=== PATIENT | female | born 1940 | race Caucasian/White ===

== ENCOUNTER 2020-05-15 14:17 | Outpatient (CLI) | payer MEDICARE, SELFPAY ==
--- NOTE | ~2020-05-15 | MM_ITS ---
EXAMINATION: MM screening [facility] w funmilayo HISTORY: Screening TECHNIQUE: Craniocaudal and mediolateral oblique 3-D tomosynthesis images were obtained and synthetic 2-D images were generated. CAD analysis was submitted and interpreted. COMPARISON: Comparison to multiple prior studies sequentially, with oldest reviewed study dated 01/2015. BREAST PARENCHYMAL COMPOSITION: There are scattered areas of fibroglandular density. FINDINGS: There is no evidence of suspicious mass, calcification, or architectural distortion to sugg est malignancy in either breast. There has been no suspicious interval change. IMPRESSION: 1. No mammographic evidence of malignancy. 2. Recommend routine screening mammography in one year. BI-RADS Category 1: Negative Reviewed, dictated and finalized at location A.
== END 2020-05-15 14:18 | disposition home or self-care (01) ==
LOC: ANHIMG 14:23
PROVIDERS: PCP Internal Medicine; Visit Provider Obstetrics & Gynecology
DX: Z12.31 Encounter for screening mammogram for malignant neoplasm of breast (principal)
CPT/HCPCS: 77063; 77067

== ENCOUNTER 2021-06-23 11:34 | Outpatient (CLI) | payer MEDICARE, SELFPAY ==
--- NOTE | ~2021-06-23 | MM_ITS ---
EXAMINATION: MM screening [facility] w funmilayo HISTORY: Screening mammogram TECHNIQUE: Craniocaudal and mediolateral oblique 3-D tomosynthesis images were obtained and synthetic 2-D images were generated. CAD analysis was submitted and interpreted. COMPARISON: 05/15/2020, 05/13/2019 BREAST PARENCHYMAL COMPOSITION: The breasts are heterogeneously dense, which may obscure small masses . FINDINGS: Scattered benign-appearing calcifications are present. There is no evidence of suspicious m ass, calcification, or architectural distortion to suggest malignancy in either breast. There has bee n no suspicious interval change. IMPRESSION: 1. No mammographic evidence of malignancy. 2. Recommend routine screening mammography in one year. BI-RADS Category 2: Benign finding(s). Reviewed, dictated and finalized at location A. 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
== END 2021-06-23 11:35 | disposition home or self-care (01) ==
LOC: ANHIMG 11:36
PROVIDERS: PCP Internal Medicine; Visit Provider Obstetrics & Gynecology
DX: Z12.31 Encounter for screening mammogram for malignant neoplasm of breast (principal)
CPT/HCPCS: 77063; 77067

== ENCOUNTER 2022-02-19 14:22 | Emergency (ER) | payer MEDICARE, SELFPAY ==
[2022-02-19] VITALS (19 sets, daily range): BP systolic 149–188; BP diastolic 69–96; PULSE 102–122; RESP 14–25; TEMP 36.7–37.8; O2SAT 90–98
--- NOTE | 2022-02-19 15:31 | ED.GENADULT ---
HPI - General Adult General Chief complaint: Fever Stated complaint: ELEVATED BP MULT C/O Time Seen by Provider: 02/19/22 15:11 History of Present Illness HPI narrative: 81-year-old female presented to the emergency department for evaluation of hypertension that occurred this morning. Patient states that she normally takes 10 mg of lisinopril. Patient was having elevated blood pressures yesterday and called her primary care physician and got the physician on-call and he advised that she increase her lisinopril to 20 mg. Patient states that she did have some emotional upset after having a disagreement with her . Patient states that her blood pressure at home was more elevated she felt that her face was flushed and her eyes felt tired. Patient's blood pressure has since improved compared to at home. Patient did have a fever of 99 at home and does have a temperature of 100.1 orally here. Patient has not received a COVID-vaccine and has not yet had COVID. Related Data Allergies Allergy/AdvReac Type Severity Reaction Status Date / Time oxytetracycline Allergy Unknown Verified 09/04/14 06:56 Penicillins Allergy Unknown Verified 09/04/14 06:56 Sulfa (Sulfonamide Allergy Unknown Verified 09/04/14 06:56 Antibiotics) OXYTETRACYCLINE HCL Allergy Unknown Uncoded 09/04/14 06:56 Review of Systems Review of Systems: CONSTITUTIONAL: See HPI EYES: Denies visual changes, redness, or discharge. ENT: Denies rhinorrhea, congestion, sore throat, or otalgia. CARDIOVASCULAR: Denies chest pain, palpitations, or edema. RESPIRATORY: Denies cough or dyspnea. GASTROINTESTINAL: Denies abdominal pain, nausea, vomiting, or diarrhea. GENITOURINARY: Denies dysuria or hematuria. SKIN: Denies rash or itching. MUSCULOSKELETAL: Denies back pain, joint pain, or myalgia. NEUROLOGIC: See HPI PSYCHIATRIC: Denies anxiety or depression. Exam Narrative: APPEARANCE: Well appearing, no pain, no distress, well-nourished. HEAD: normocephalic, atraumatic. EYES: PERRLA/EOMI, conjunctivae clear. NOSE: Normal no drainage THROAT: Pharynx clear, no exudate. NECK: Supple. No adenopathy, no masses. RESPIRATORY: Airway patent, respirations nonlabored. Clear to auscultation bilaterally, no rales, rhonchi, wheezing. CARDIOVASCULAR: Regular rate and rhythm without murmurs rubs or gallops. ABDOMINAL: Soft, nontender, nondistended, normal bowel sounds MUSCULOSKELETAL: Moves all extremities. Strength/ROM intact, No edema, No calf tenderness. NEURO: Alert. Cranial nerves II through XII intact. Grossly intact SKIN: Warm, dry. Normal Color Course Course Emergency Course: Patient's vital signs are within normal limits. Patient's blood pressure did improve while in the ED. Patient did test positive for COVID. Patient was updated on the results of her testing and was encouraged of close follow-up with her primary care physician. All questions and concerns were addressed. Vital Signs Vital signs: Vital Signs Temperature 100.1 F H 02/19/22 14:25 Pulse Rate 122 H 02/19/22 14:25 Respiratory Rate 14 02/19/22 14:25 Blood Pressure 186/84 H 02/19/22 14:25 Pulse Oximetry 98 02/19/22 14:25 Oxygen Delivery Room Air 02/19/22 14:25 Temperature 98.0 F 02/19/22 16:30 Pulse Rate 110 H 02/19/22 17:01 Respiratory Rate 19 02/19/22 17:01 Blood Pressure 149/75 H 02/19/22 17:01 Pulse Oximetry 94 02/19/22 17:01 Oxygen Delivery Room Air 02/19/22 15:17 Medical Decision Making Vital Signs Vital Signs: Vital Signs Temperature 100.1 F H 02/19/22 14:25 Pulse Rate 122 H 02/19/22 14:25 Respiratory Rate 14 02/19/22 14:25 Blood Pressure 186/84 H 02/19/22 14:25 Pulse Oximetry 98 02/19/22 14:25 Oxygen Delivery Room Air 02/19/22 14:25 Temperature 98.0 F 02/19/22 16:30 Pulse Rate 110 H 02/19/22 17:01 Respiratory Rate 19 02/19/22 17:01 Blood Pressure 149/75 H 02/19/22 17:01 Pulse Oximetry 94 02/19/22 17:01 Oxygen Deliv
[2022-02-19 15:59] LABS: Appearance Urine Clear (Clear); Bilirubin Urine Negative (Negative); Blood Urine 1+ (Negative); Color Urine Yellow (Yellow); Glucose Urine UA Negative (Negative); Ketones Urine Negative (Negative); Leukocyte Esterase Ur Negative LEU/UL (Negative); Nitrate Urine Negative (Negative); Protein Urine Trace mg/dL (Negative); Urobilinogen Urine 0.2 mg/dL (<2.0)
[2022-02-19 16:02] LABS: Add Urine Microscopic? YES
[2022-02-19 16:04] LABS: Basophils Absolute Auto 0.1 K/mm3 (0.0-0.1); Basophils Percent Auto 0.6 % (0.2-1.2); Eosinophils Percent Auto 0.2 % (0-4.4); Hematocrit 42.2 % (37.0-47.0); Hemoglobin 13.7 g/dL (12.0-15.0); Immature Granulocyte Absolute 0.04 K/mm3 (0.00-0.031); Immature Granulocyte Percent A 0.5 % (0-0.5); Immature Platelet Fraction Pct 3.6 % (0.9-11.2); Lymphocytes Absolute Auto 1.08 K/mm3 (0.9-3.2); Lymphocytes Percent Auto 12.9 % (18.3-44.2); Mean Corpuscular HGB Conc 32.5 g/dl (32-36); Mean Corpuscular Hemoglobin 29.3 pg (26-34); Mean Corpuscular Volume 90.2 fl (80-100); Mean Platelet Volume 10.3 fl (7.4-10.4); Monocytes Absolute Auto 0.9 K/mm3 (0.1-0.6); Monocytes Percent Auto 10.2 % (2.6-8.5); Neutrophils Absolute Auto 6.3 K/mm3 (1.3-6.7); Neutrophils Percent Auto 75.6 % (45.5-73.1); Platelet Count Result 232 k/mm3 (150-375); Red Blood Count 4.68 M/mm3 (4.2-5.4); Red Cell Distribution Width 13.3 % (11.5-14.5); White Blood Count 8.4 K/mm3 (4.5-10.0)
[2022-02-19 16:08] LABS: Lactic Acid Reflex 1.1 mmol/L (0.7-2.0)
[2022-02-19 16:20] LABS: Alanine Aminotransferase 35 U/L (6-35); Albumin Level 4.6 g/dL (3.5-5.1); Alkaline Phosphatase 89 U/L (38-126); Anion Gap 5 mmol/L (8-16); Aspartate Amino Transferase 36 U/L (14-36); Bilirubin,Total 0.5 mg/dL (0.2-1.3); Blood Urea Nitrogen 9 mg/dL (7-17); Calcium 8.7 mg/dL (8.4-10.2); Carbon Dioxide 27 mmol/L (22-30); Chloride 104 mmol/L (98-107); Estimated Glomerular Filt Rate > 60; Glucose 139 mg/dL (65-110); Lipase 34 U/L (23-300); Potassium 4.3 mmol/L (3.4-5.0); Sodium 136 mmol/L (137-145)
[2022-02-19 16:37] LABS: SARS-CoV-2 RNA PCR Positive
[2022-02-19 16:45] LABS: Bacteria Urine Trace /hpf; Mucus Urine Rare /lpf; Squamous Epithelial Cell Urine Occasional /hpf (Few)
== END 2022-02-19 17:15 | disposition home or self-care (01) ==
PROVIDERS: Emergency Provider Emergency Medicine; PCP Internal Medicine
DX: U07.1 COVID-19 (principal); I10 Essential (primary) hypertension; Z28.310 Unvaccinated for COVID-19
CPT/HCPCS: 36415; 80053; 81001; 83605; 83690; 85025; 85055; 96365; 99284; C9803; J0131; U0003; U0005

== ENCOUNTER 2022-11-21 09:24 | Outpatient (CLI) | payer MEDICARE, SELFPAY ==
--- NOTE | ~2022-11-21 | XR_ITS ---
MODIFIED ESOPHAGRAM HISTORY: Dysphagia. TECHNIQUE: Modified barium esophagram was performed on 11/21/2022. I administered fluoroscopy and perf ormed the exam with speech pathologist. Patient was seated for lateral fluoroscopic imaging for letty stion of thin liquids, pudding, solids and quantified amounts, followed by thin liquids in uncontroll ed amounts. This was recorded on tape. A single fluoroscopic spot image was also recorded. The DAP fo r this procedure was 1.06 Gycm2. The amount of fluoroscopy time used during this procedure was 1.5 mi nutes. FINDINGS: Oral stage: Adequate function. Pharyngeal stage: In consistent small amount of laryngeal penetration without aspiration with thin li quids. Cervical/esophageal stage: Adequate function. Incidentally noted is a small outpouching of contrast a long the posterior wall of the hypopharynx originating along the cephalad margin of the upper esophag eal sphincter most likely representing a small Zenker's diverticulum. IMPRESSION: 1. Inconsistent small amount of pharyngeal penetration without aspiration. Please correlate with spe ech pathologist findings and specific feeding recommendations. 2. 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 Reviewed, dictated and finalized at location A. IMPRESSION: 1. Inconsistent small amount of pharyngeal penetration without aspiration. Ple ase correlate with speech pathologist findings and specific feeding recommendat ions. 2. 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
--- NOTE | 2022-11-21 11:24 | REHSTMBS ---
Assessment and note entered by Gladis Knight, SUPERVISOR WELDING EQUIPMENT REPAIRER Modified Barium Swallow Evaluation Feeding Type Recommended Oral Food Consistency Regular, Level 7 Liquid Consistency Thin (0) Head Flexion ST Clinical Summary MODIFIED BARIUM SWALLOW STUDY (MBSS) This woman was seen for a Modified Barium Swallow study after reporting becoming tickled/choked/ strangled on both thin liquids and her own saliva over a period of time. Patient reports a history of hiatal hernia and gastroesophageal reflux disease. Patient reported that on one occasion, she became strangled on thin liquid and began coughing so violently that her grandson felt the need to do the Heimlich maneuver at which time she coughed up phlegm and small crumbs of food. Today the patient was viewed in the lateral position to the level of C5/C6. She was presented with thin liquid contrast medium per cup, then pudding mixed with semi-solid contrast medium, and fruit pieces and syrup, and luis manuel crackers both coated with the semi-solid mixture. Patient exhibited trace penetration on her first sip of thin liquid per cup, but not again later in the assessment. Head flexion was attempted and found to prevent penetration, as well. She also tolerated the pudding and mixed/solid consistencies without penetration. Results indicate this patient is at inconsistent risk for penetration/aspiration on thin liquids. Head flexion prevents penetration. Of note, a diverticulum was observed below the level of the cricopharyngeal sphincter which may be contributing to patient's complaints. See physician report for details. Patient was instructed in the use of head flexion for liquids. No further Speech Therapy is indicated at this time however if symptoms persist or worsen, she may consider returning for structured Speech Therapy for strengthening exercises. Thank you for this referral.
== END 2022-11-21 09:25 | disposition home or self-care (01) ==
PROVIDERS: PCP Internal Medicine; Visit Provider Internal Medicine
DX: R13.10 Dysphagia, unspecified (principal)
CPT/HCPCS: 92611

== ENCOUNTER 2023-01-13 19:52 | Emergency (ER) | payer MEDICARE, SELFPAY ==
[2023-01-13 20:30] VITALS: BP 186/76; PULSE 89; RESP 20; TEMP 36.9; O2SAT 100
--- NOTE | 2023-01-13 23:57 | ED.EYEPROB ---
HPI - Eye Problem General Chief complaint: Eye Problems Stated complaint: left eye swelling Time Seen by Provider: 01/13/23 22:43 Source: patient Mode of arrival: ambulatory Limitations: no limitations History of Present Illness HPI Narrative: Patient is an 82-year-old female who presents to the ED with report of pain and swelling to her left lower eye. Patient reports she noticed a small area of tenderness to her left lower inner eyelid 2 days ago. She has since developed a painful lump along her eyelid, watery discharge, swelling extending down into her lower periorbital region. Denies pain in her eye. Patient has not tried anything for symptoms. She denies any vision changes, blurry vision, double vision, vision loss. She denies any numbness, headache, fevers. Patient does not wear eye make-up or contacts. Related Data Allergies Allergy/AdvReac Type Severity Reaction Status Date / Time oxytetracycline Allergy Unknown Other Verified 01/13/23 20:39 Penicillins Allergy Unknown Other Verified 01/13/23 20:39 Sulfa (Sulfonamide Allergy Unknown Other Verified 01/13/23 20:39 Antibiotics) aspirin AdvReac Gastrointestinal Verified 01/13/23 20:39 Upset OXYTETRACYCLINE HCL Allergy Unknown Other Uncoded 01/13/23 20:39 STEROIDS Allergy Other Uncoded 01/13/23 20:39 Review of Systems Review of Systems: CONSTITUTIONAL: Denies fever, chills, or sweats. EYES: See HPI. SKIN: See HPI. NEUROLOGIC: Denies headache, numbness, or weakness. All systems reviewed & are unremarkable except as noted in HPI and below PMFSH Past Medical History Medical History GERD (gastroesophageal reflux disease) Hypertension Exam Narrative: GENERAL: Well appearing, well-nourished, non-toxic, in no acute distress. HEAD: Normocephalic, atraumatic. EYES: PERRLA/EOMI bilaterally. No nystagmus. Watery drainage to L eye. Small amount of purulent discharge collected in corner of L eyelid. No significant conjunctival injection. Small tender fluid-filled lump along left inner lower eyelid, with yellow cystlike structure seen on conjunctival view, consistent with chalazion. Redness and mild swelling noted to left lower eyelid, extending into the lower periorbital region. No crepitus. No pain with extraocular movements. NECK: Supple. No adenopathy, no masses. RESPIRATORY: Airway patent, respirations nonlabored. CARDIOVASCULAR: Regular rate and rhythm without murmurs, rubs, or gallops. Peripheral pulses 2+ and equal bilaterally. MUSCULOSKELETAL: Moves all extremities. Strength/ROM intact without gross deformities. SKIN: Warm, dry, normal color. No rashes. NEURO: A&O X3. Speech clear. Cranial nerves II-XII grossly intact. Steady gait. No ataxic movements. PSYCHIATRIC: Appropriate mood and affect. Normal interaction. Course Vital Signs Vital signs: Vital Signs Temperature 98.4 F 01/13/23 20:30 Pulse Rate 89 01/13/23 20:30 Respiratory Rate 20 01/13/23 20:30 Blood Pressure 186/76 H 01/13/23 20:30 Pulse Oximetry 100 01/13/23 20:30 Oxygen Delivery Room Air 01/13/23 20:30 Temperature 98.4 F 01/13/23 20:30 Pulse Rate 89 01/13/23 20:30 Respiratory Rate 20 01/13/23 20:30 Blood Pressure 186/76 H 01/13/23 20:30 Pulse Oximetry 100 01/13/23 20:30 Oxygen Delivery Room Air 01/13/23 20:30 MDM - Eye Problem MDM Narrative Medical decision making narrative: Patient presented to ED with left lower eyelid pain, swelling, drainage to eye. Vital stable upon arrival. Visual acuity equal bilaterally. Patient denying any vision changes or vision loss. Exam consistent with chalazion. Fluorescein staining and Arroyo lamp examination was performed and no conjunctival or corneal abrasion was identified. Eye pressures were evaluated and noted to be 15 bilaterally. Patient was given warm compresses to the eye in the ED and already had drainage from the chalazion
[2023-01-14] MEDS: FLUORESCEIN SOD 1 MG/STRIP EACH EYE (00:08)
[2023-01-14 01:45] VITALS: BP 145/83; PULSE 78; RESP 16; O2SAT 99
== END 2023-01-14 01:56 | disposition home or self-care (01) ==
PROVIDERS: Emergency Provider Physician Assistant; PCP Internal Medicine
DX: H00.15 Chalazion left lower eyelid (principal); K21.9 Gastro-esophageal reflux disease without esophagitis; I10 Essential (primary) hypertension
CPT/HCPCS: 99283

== ENCOUNTER 2023-04-17 14:37 | Outpatient (CLI) | payer MEDICARE, SELFPAY ==
--- NOTE | ~2023-04-17 | MM_ITS ---
EXAMINATION: MM screening [facility] w funmilayo HISTORY: Screening mammogram TECHNIQUE: Craniocaudal and mediolateral oblique 3-D tomosynthesis images were obtained and synthetic 2-D images were generated. CAD analysis was submitted and interpreted. COMPARISON: 06/23/2021, 05/15/2020, 05/13/2019 bilateral screening mammogram examinations BREAST PARENCHYMAL COMPOSITION: There are scattered areas of fibroglandular density. FINDINGS: Scattered bilateral benign calcifications are again noted. There is no evidence of suspicio us mass, calcification, or architectural distortion to suggest malignancy in either breast. There has been no suspicious interval change. IMPRESSION: 1. No mammographic evidence of malignancy. 2. Recommend routine screening mammography in one year. BI-RADS Category 2: Benign finding(s). Reviewed, dictated and finalized at location A.
== END 2023-04-17 14:38 | disposition home or self-care (01) ==
PROVIDERS: PCP Internal Medicine; Visit Provider Obstetrics & Gynecology
DX: Z12.31 Encounter for screening mammogram for malignant neoplasm of breast (principal)
CPT/HCPCS: 77063; 77067